=== PATIENT | female | born 1960 | race Caucasian/White ===

== ENCOUNTER 2018-06-30 07:57 | Day surgery (SDC) | payer OTHER, SELFPAY ==
--- NOTE | 2018-06-30 | PATH_ITS ---
[facility] Accession Number: [id number] . 01 Material submitted: . PART A: ANTRUM BIOPSY PART B: LESION PROXIMAL STOMACH PART C: BIOPSY GE JUNCTION . 02 Diagnosis: A. Antrum, Biopsy: Gastric antral and body mucosa with mild chronic gastritis. Negative for Helicobacter organisms by immunohistochemistry. Negative for intestinal metaplasia, dysplasia or malignancy. . B. Proximal Stomach Lesion, Biopsy: Features of hyperplastic gastric polyp. No evidence of Helicobacter organisms on H/E stain. Negative for intestinal metaplasia, dysplasia or malignancy. . C. Gastroesophageal Junction, Biopsy: Squamcolumnar junctional mucosa with no diagnostic abnormality. Negative for specialized intestinal metaplasia, dysplasia or malignancy. [facility]/07/02/2018 . 02 Electronically signed: . Ronak Leung MD, PhD, Pathologist NPI- [id number] . 01 Gross description: . Received three formalin-filled containers each labeled with the patient's name. . A. In a container labeled antrum are multiple 0.1 to 0.3 cm portions of tissue. Entirely submitted in cassette A. B. In a container labeled proximal stomach, the specimen consists of three 0.1 to 0.2 cm portions of tissue. Entirely submitted in cassette B. C. In a container labeled GE junction, the specimen consists of four less than 0.1 to 0.3 cm portions of tissue. Entirely submitted in cassette C. ([facility] [place]:[id number]) /[facility] . 02 Microscopic: . Part A: An immunohistochemical stain is performed to evaluate for Helicobacter organisms and is negative. A control stain shows appropriate reactivity. . * This test was developed and its performance characteristics determined by [facility]. It has not been cleared or approved by the U.S. Food and Drug Administration. The FDA has determined that such clearance or approval is not necessary. This test is used for clinical purposes. It should not be regarded as investigational or for research. . 02 Pathologist provided ICD-10: K29.70, K31.7, K21.9 . 02 CPT . 649405, 387107, 506511, K97370 Performed at: 01 [facility] [address] [id number] MD Parminder Castellon MD Phone: [phone] Performed at: 02 [facility] [id number] [place] [id number] MD Sina Rogel MD Phone: [phone]
[2018-06-30 08:22] VITALS: BP 127/68; PULSE 94; RESP 16; TEMP 36.9; O2SAT 100; BMI 21.4
[2018-06-30] MEDS: SODIUM CHLORIDE 0.9% 1,000 ML 200 ML IV (08:32)
--- NOTE | 2018-06-30 08:43 | SUR.PREOP ---
ramesh garcia started iv
[2018-06-30] MEDS: LORazepam 2 MG/ML SYRINGE 0.5 MG IV (08:49)
--- NOTE | 2018-06-30 08:50 | SUR.PREOP ---
lorazepam given per order for pt's anxiety.
[2018-06-30] MEDS: MIDAZOLAM 5 MG/5 ML VIAL IV (08:52)
--- NOTE | 2018-06-30 08:56 | PM.PREOP ---
Pre-operative Note Interval Note Pre-op Check: Yes History & Physical Reviewed by Physician and Yes Exam Performed Changes: No ASA Class (for procedural sedation): I
[2018-06-30] MEDS: LIDOCAINE 4% SOLN 50 ML 20 ML TOP (08:58)
[2018-06-30] MEDS: fentaNYL 250 MCG/5 ML INJ IV (08:58)
[2018-06-30] MEDS: TETRACAINE/BENZOCAINE/BUTAMBEN (CETACAINE) BOTTLE 1 SPRAY TOP (09:00)
--- NOTE | 2018-06-30 09:13 | PM.OP.ENDO ---
Operative Date/Time/Diagnoses Date of procedure: 06/30/18 Time of procedure: 09:13 Pre-op diagnosis: Chronic throat irritation rule out silent reflux. Post-op diagnosis: other (Gastritis. Possible delayed gastric emptying.) Procedure & Clinicians Study performed: EGD with cold biopsy Same procedure as scheduled: Yes Indications: Chronic throat irritation and clearing. Concern raised regarding the possibility of silent reflux. Surgeon: Emiliano Gallardo Procedure Notes SCOAP/Timeout: Performed Procedure in detail: The patient had topical anesthetic applied to oropharynx. She was placed in left lateral decubitus position and underwent IV sedation directed by the surgeon consisting of fentanyl and Versed. A bite block was inserted and the scope was advanced through it into the esophagus. The esophagus was unremarkable. GE junction was noted at[38 cm. There was a very small hiatal hernia. There was a sharp demarcation between the esophagus and gastric mucosa. There were no ulcers strictures or lesions seen in the region. There was a small amount of food in the stomach.]. The stomach insufflated well. The stomach was mildly inflamed diffusely. There were no other lesions seen in the body, antrum or at the incisura. The pyloric channel was [narrowed but patent]. The duodenum was unremarkable to the 4th part. The scope was brought back into the stomach and retroflexed. The proximal stomach[was mildly inflamed. They are worse several small slightly raised red lesions which I biopsied. There was a very small hiatal hernia seen on retroflexed view.]. The scope was straightened and biopsies were taken randomly of the antrum. The scope was brought out through the esophagus again and random biopsies was were taken at the GE junction. No lesions were seen. The scope was removed and the patient tolerated the procedure well. Scope withdrawal time: Not applicable Sedation minutes: 18 Findings: gastritis and other findings (Small red lesions near the GE junction in the proximal stomach which were biopsied) Specimen(s): other (Gastric/red lesions/GE junction) Complications: none Recommendations: Continue medication(s) (Omeprazole) Follow up: weeks (Two) Disposition: PACU
[2018-06-30 09:16] VITALS: BP 114/66; PULSE 86; RESP 10; TEMP 36.8; O2SAT 100
[2018-06-30 09:21] VITALS: BP 127/79; PULSE 106; RESP 14; O2SAT 99
[2018-06-30 09:29] VITALS: BP 93/63; PULSE 99; RESP 17
[2018-06-30 09:33] VITALS: BP 105/66; PULSE 92; RESP 13; TEMP 36.8; O2SAT 97
== END 2018-06-30 09:45 | disposition home or self-care (01) ==
PROVIDERS: PCP Family Medicine; Visit Provider Specialist
PROC: 0DJ08ZZ Inspection of Upper Intestinal Tract, Via Natural or Artificial Opening Endoscopic (ICD-10-PCS; CPT 43235; principal; 2018-06-30 09:00)
DX: K21.9 Gastro-esophageal reflux disease without esophagitis (principal); K29.70 Gastritis, unspecified, without bleeding; K31.7 Polyp of stomach and duodenum
CPT/HCPCS: 43239; 99152; J2060; J2250; J3010

== ENCOUNTER → 2018-08-04 15:00 | Outpatient (CLI) | payer OTHER, SELFPAY | PROVIDERS: PCP Family Medicine | DX: Z23 Encounter for immunization (principal) | CPT/HCPCS: 90471; 90686 ==

== ENCOUNTER → 2018-09-04 07:44 | Outpatient (CLI) | payer OTHER, SELFPAY ==
--- NOTE | 2018-09-04 | DI.MG.S_ITS ---
BILATERAL DIGITAL SCREENING MAMMOGRAM 3D/2D WITH CAD: 09/04/2018 CLINICAL: Routine screening. Family history of breast cancer. Comparison is made to exams dated: 08/11/2017 mammogram, 07/29/2016 mammogram, and 07/12/2015 mammogram - [facility]. The tissue of both breasts is heterogeneously dense. This may lower the sensitivity of mammography. Current study was also evaluated with a Computer Aided Detection (CAD) system. There is a 2 cm oval mass with an obscured margin in the left breast upper outer aspect anterior depth. Finding is best noted on tomographic CC slice 11 and MLO slice 14. No other significant masses, calcifications, or other findings are seen in either breast. IMPRESSION: INCOMPLETE: NEEDS ADDITIONAL IMAGING EVALUATION The 2 cm oval mass in the left breast is indeterminate. Additional views with possible ultrasound are recommended. This exam was interpreted at Station ID: [id number]. NOTE: For mammograms, a report in lay terms will be sent to the patient. Approximately 15% of breast malignancies will not be visualized mammographically. In the management of a palpable breast mass, a negative mammogram must not discourage biopsy of a clinically suspicious lesion. Electronically Signed By: Ganga Holland M.D. ecl/:09/06/2018 02:42:26 letter sent: Additional Imaging Needed ACR BI-RADS Category 0: Incomplete 3340F
== END ==
PROVIDERS: PCP Family Medicine; Visit Provider Family Medicine
DX: Z12.31 Encounter for screening mammogram for malignant neoplasm of breast (principal); Z80.3 Family history of malignant neoplasm of breast
CPT/HCPCS: 77063; 77067

== ENCOUNTER → 2018-09-17 08:48 | Outpatient (CLI) | payer OTHER, SELFPAY ==
--- NOTE | 2018-09-17 | DI.US.S_ITS ---
LIMITED ULTRASOUND OF LEFT BREAST: 09/17/2018 CLINICAL: Patient returns today to evaluate a potential mass in the left breast. Comparison is made to exams dated: 09/04/2018 mammogram, 08/11/2017 mammogram, and 07/29/2016 mammogram - [facility]. Real-time and Doppler ultrasound of the left breast upper outer quadrant were performed. Humphrey scale images of the real-time examination were reviewed. There is a benign 1.8 cm x 1.6 cm x 0.8 cm oval cyst in the left breast at 3 o'clock retroareolar position. This oval cyst is anechoic with posterior acoustic enhancement. This correlates with mammography findings. Color flow imaging demonstrates that there is no vascularity present. IMPRESSION: BENIGN The 1.8 cm x 1.6 cm x 0.8 cm oval cyst in the left breast is consistent with a simple cyst and is benign. There is no sonographic evidence of malignancy in the imaged left breast. Return to annual mammogram screening schedule is recommended, next due in August 2019. This exam was interpreted at Station ID: [id number]. Electronically Signed By: Ganga Holland M.D. ecl/:09/17/2018 11:15:51 letter sent: Normal Exam Ultrasound BI-RADS: 2 Benign
--- NOTE | 2018-09-17 | DI.MG.S_ITS ---
UNILATERAL LEFT DIGITAL DIAGNOSTIC MAMMOGRAM 3D/2D WITH ADDITIONAL VIEWS: 09/17/2018 CLINICAL: Additional evaluation requested from prior study. Comparison is made to exams dated: 09/04/2018 mammogram, 08/11/2017 mammogram, and 07/29/2016 mammogram - [facility]. The tissue of left breast is heterogeneously dense. This may lower the sensitivity of mammography. Previously identified approximately 2.0 cm oval mass with an obscured margin in the left breast upper outer aspect anterior depth of comparison screening mammograms persists with additional views. No other significant masses, calcifications, or other findings are seen in the breast. IMPRESSION: INCOMPLETE: NEEDS ADDITIONAL IMAGING EVALUATION Previously identified approximately 2.0 cm oval mass with an obscured margin in the left breast upper outer aspect anterior depth of comparison screening mammograms persists with additional views. A targeted ultrasound is recommended for further evaluation, and will be performed immediately following this exam. This exam was interpreted at Station ID: [id number]. NOTE: For mammograms, a report in lay terms will be sent to the patient. Approximately 15% of breast malignancies will not be visualized mammographically. In the management of a palpable breast mass, a negative mammogram must not discourage biopsy of a clinically suspicious lesion. Electronically Signed By: Ganga Holland M.D. ecl/:09/17/2018 11:11:24 letter sent: Additional Imaging Needed ACR BI-RADS Category 0: Incomplete 3340F
== END ==
PROVIDERS: PCP Family Medicine; Visit Provider Family Medicine
DX: R92.8 Other abnormal and inconclusive findings on diagnostic imaging of breast (principal); N60.02 Solitary cyst of left breast
CPT/HCPCS: 76642; 77065; G0279

== ENCOUNTER → 2019-06-30 16:39 | Outpatient (CLI) | payer OTHER, SELFPAY ==
--- NOTE | 2019-06-30 16:41 | DI.MRI.S_ITS ---
PROCEDURE: MR LUMBAR SPINE WO CON INDICATIONS: Right sided lower back pain TECHNIQUE: Noncontrast sagittal T1 spin echo and T2 fast echo, sagittal STIR, axial T1 and T2 fast spin echo through the lumbar spine. Axial and oblique coronal T1 spin echo and STIR through the sacrum. In cases with scoliosis, additional coronal T2 fast spin echo may be performed. COMPARISON: None. FINDINGS: Image quality: Excellent. Alignment and Curvature: There is normal bony alignment. Bone Marrow: Marrow is of normal overall signal. No acute vertebral body compression fractures. No sacral fractures. Spinal Cord: Conus medullaris terminates at the T12-L1 level. Visualized cord demonstrates normal signal and size. Paraspinous Soft Tissues: No paravertebral masses. A 1.4 cm this can be seen on the lateral aspect of the right kidney. T12-L1: Normal appearance. L1-L2: Normal appearance. L2-L3: Normal appearance. L3-L4: Normal appearance. L4-L5: Normal appearance. L5-S1: The disc height is well-preserved. Loss of disc signal is seen at this level. There is a focal annular fissure seen posteriorly, as on series 2 image 9. Mild facet joint hypertrophy is seen. The No neural foraminal narrowing is seen. Mild central canal narrowing is seen. Sacrum: Sacral neural foramina appear normal throughout. Superior to the piriformis muscles, the pre-plexal structures appear normal, including the lumbosacral trunk and S1 root. Just anterior to the piriformis muscles, the sacral plexus proper demonstrates normal morphology (lumbosacral trunk, S1 to S3 nerve roots). Inferior to the piriformis muscles, the sciatic nerves appear normal. IMPRESSION: Focal L5-S1 degenerative change is seen, including an annular fissure posteriorly. Dictated by: Luis Enrique Daugherty M.D. on 06/30/2019 at 17:17 Approved by: Luis Enrique Daugherty M.D. on 06/30/2019 at 17:19
== END ==
PROVIDERS: PCP Family Medicine; Visit Provider Family Medicine
DX: M54.16 Radiculopathy, lumbar region (principal)
CPT/HCPCS: 72148

== ENCOUNTER → 2019-09-09 14:37 | Outpatient (CLI) | payer OTHER, SELFPAY | PROVIDERS: PCP Family Medicine | DX: Z23 Encounter for immunization (principal) | CPT/HCPCS: 90471; 90686 ==

== ENCOUNTER → 2019-10-11 08:04 | Outpatient (CLI) | payer OTHER, SELFPAY ==
--- NOTE | 2019-10-11 | DI.MG.S_ITS ---
BILATERAL DIGITAL SCREENING MAMMOGRAM 3D/2D WITH CAD: 10/11/2019 CLINICAL: Routine screening. Family history of breast cancer. Comparison is made to exams dated: 09/04/2018 mammogram, 08/11/2017 mammogram, 07/29/2016 mammogram, 07/12/2015 mammogram, and 06/20/2014 mammogram - [facility]. The tissue of both breasts is heterogeneously dense. This may lower the sensitivity of mammography. Current study was also evaluated with a Computer Aided Detection (CAD) system. No significant masses, calcifications, or other findings are seen in either breast. There has been no significant interval change. IMPRESSION: NEGATIVE There is no mammographic evidence of malignancy. A 1 year screening mammogram is recommended. This exam was interpreted at Station ID: [id number]. NOTE: For mammograms, a report in lay terms will be sent to the patient. Approximately 15% of breast malignancies will not be visualized mammographically. In the management of a palpable breast mass, a negative mammogram must not discourage biopsy of a clinically suspicious lesion. Electronically Signed By: Antonio chester/ester:10/11/2019 15:28:47 letter sent: Normal Exam ACR BI-RADS Category 1: Negative 3341F
== END ==
PROVIDERS: PCP Family Medicine; Visit Provider Family Medicine
DX: Z12.31 Encounter for screening mammogram for malignant neoplasm of breast (principal); Z80.3 Family history of malignant neoplasm of breast
CPT/HCPCS: 77063; 77067

== ENCOUNTER → 2019-10-28 15:51 | Outpatient (CLI) | payer OTHER, SELFPAY ==
--- NOTE | 2019-10-28 | DI.RAD.S_ITS ---
PROCEDURE: XR CHEST 2V INDICATIONS: cough TECHNIQUE: 2 views of the chest were acquired. COMPARISON: None. FINDINGS: Surgical changes and devices: None. Lungs and pleura: Lungs are clear. No pleural effusions or pneumothorax. Mediastinum: Mediastinal contours are normal. Heart size is normal. Bones and chest wall: Left mastectomy. No suspicious bony abnormalities. Soft tissues appear unremarkable. IMPRESSION: No acute cardiopulmonary disease. Dictated by: Garret Carmen M.D. on 10/28/2019 at 16:29 Approved by: Garret Carmen M.D. on 10/28/2019 at 16:30
== END ==
PROVIDERS: PCP Family Medicine; Visit Provider Family Medicine
DX: R05 Cough (principal)
CPT/HCPCS: 71046

== ENCOUNTER → 2020-09-07 04:08 | Outpatient (CLI) | payer OTHER, SELFPAY | PROVIDERS: PCP Family Medicine; Referring Provider Internal Medicine; Visit Provider Internal Medicine | DX: Z23 Encounter for immunization (principal) | CPT/HCPCS: 90471; 90686 ==

== ENCOUNTER → 2020-09-21 14:19 | Outpatient (CLI) | payer OTHER, SELFPAY ==
[2020-09-21 14:44] LABS: COVID19 -Nasal RAPID Negative (Negative)
== END ==
PROVIDERS: PCP Family Medicine; Visit Provider Nurse Practitioner
DX: Z11.59 Encounter for screening for other viral diseases (principal)
CPT/HCPCS: 87635

== ENCOUNTER → 2020-10-30 08:34 | Outpatient (CLI) | payer OTHER, SELFPAY ==
--- NOTE | 2020-10-30 | DI.MG.S_ITS ---
BILATERAL DIGITAL SCREENING MAMMOGRAM 3D/2D WITH CAD: 10/30/2020 CLINICAL: Routine screening. Family history of breast cancer. Comparison is made to exams dated: 10/11/2019 mammogram, 09/04/2018 mammogram, 07/12/2015 mammogram, and 07/29/2016 mammogram - [facility]. The tissue of both breasts is heterogeneously dense. This may lower the sensitivity of mammography. Current study was also evaluated with a Computer Aided Detection (CAD) system. The left breast has post-operative findings. There are new grouped fine calcifications in the left breast at 5 o'clock middle depth. No other significant masses, calcifications, or other findings are seen in either breast. IMPRESSION: INCOMPLETE: NEEDS ADDITIONAL IMAGING EVALUATION The new grouped fine calcifications in the left breast are indeterminate. Mediolateral and spot magnification views are recommended. This exam was interpreted at Station ID: [id number]. NOTE: For mammograms, a report in lay terms will be sent to the patient. Approximately 15% of breast malignancies will not be visualized mammographically. In the management of a palpable breast mass, a negative mammogram must not discourage biopsy of a clinically suspicious lesion. Electronically Signed By: Landen Diaz M.D. aty/:10/30/2020 09:01:27 letter sent: Additional Imaging Needed ACR BI-RADS Category 0: Incomplete 3340F
== END ==
PROVIDERS: PCP Family Medicine; Referring Provider Family Medicine; Visit Provider Family Medicine
DX: Z12.31 Encounter for screening mammogram for malignant neoplasm of breast (principal); Z80.3 Family history of malignant neoplasm of breast
CPT/HCPCS: 77063; 77067

== ENCOUNTER → 2020-12-01 08:54 | Outpatient (CLI) | payer OTHER, SELFPAY ==
--- NOTE | 2020-12-01 | DI.MG.S_ITS ---
UNILATERAL LEFT DIGITAL DIAGNOSTIC MAMMOGRAM 3D/2D WITH ADDITIONAL VIEWS: 12/01/2020 CLINICAL: Additional evaluation requested from prior study. Comparison is made to exams dated: 10/30/2020 mammogram, 10/11/2019 mammogram, and 09/04/2018 mammogram - [facility]. The tissue of left breast is heterogeneously dense. This may lower the sensitivity of mammography. There is an oval equal density focal asymmetry with an obscured and circumscribed margin in the left breast at 5 o'clock middle depth. There also are benign grouped fine calcifications in the left breast at 5 o'clock posterior depth. These are less prominent. No other significant masses or calcifications are seen in the breast. IMPRESSION: INCOMPLETE: NEEDS ADDITIONAL IMAGING EVALUATION The oval equal density focal asymmetry in the left breast at 5 o'clock middle depth is indeterminate. An ultrasound is recommended. Ultrasound will be performed the same day. This exam was interpreted at Station ID: [id number]. NOTE: For mammograms, a report in lay terms will be sent to the patient. Approximately 15% of breast malignancies will not be visualized mammographically. In the management of a palpable breast mass, a negative mammogram must not discourage biopsy of a clinically suspicious lesion. Electronically Signed By: Parminder Ryder M.D. ddp/:12/01/2020 10:28:48 ACR BI-RADS Category 0: Incomplete 3340F
--- NOTE | 2020-12-01 | DI.US.S_ITS ---
LIMITED ULTRASOUND OF LEFT BREAST: 12/01/2020 CLINICAL: Patient returns today to evaluate a focal asymmetry in the left breast. Comparison is made to exams dated: 12/01/2020 mammogram, 10/30/2020 mammogram, 10/11/2019 mammogram, 09/17/2018 ultrasound, 09/17/2018 mammogram, and 09/04/2018 mammogram - [facility]. Color flow and real-time ultrasound of the left breast 2-5 o'clock region were performed on the areas of interest. There is a 0.7 cm x 0.5 cm x 0.4 cm oval cyst in the left breast at 3 o'clock middle depth 2 cm from the nipple. This oval cyst is hypoechoic with a well-defined boundary and internal echoes. This correlates with mammography findings. Color flow imaging demonstrates that there is no vascularity present. There also is a 0.7 cm x 0.4 cm x 0.4 cm oval cyst in the left breast at 3 o'clock middle depth 3 cm from the nipple. This oval cyst is hypoechoic with a well-defined boundary, internal echoes, and posterior acoustic enhancement. This correlates with mammography findings. Color flow imaging demonstrates that there is no vascularity present. IMPRESSION: PROBABLY BENIGN The 0.7 cm x 0.5 cm x 0.4 cm oval cyst in the left breast at 3 o'clock middle depth is consistent with a complicated cyst and is probably benign. The 0.7 cm x 0.4 cm x 0.4 cm oval cyst in the left breast at 3 o'clock middle depth is consistent with a complicated cyst and is probably benign. A follow-up mammogram and an ultrasound in 6 months are recommended to demonstrate stability. This exam was interpreted at Station ID: [id number]. Electronically Signed By: Parminder Ryder M.D. ddjesus/:12/01/2020 12:34:10 letter sent: Followup Recommended Ultrasound BI-RADS: 3 Probably benign
== END ==
PROVIDERS: PCP Family Medicine; Referring Provider Family Medicine; Visit Provider Family Medicine
DX: R92.8 Other abnormal and inconclusive findings on diagnostic imaging of breast (principal); N60.02 Solitary cyst of left breast
CPT/HCPCS: 76642; 77065; G0279

== ENCOUNTER → 2022-03-01 09:31 | Outpatient (CLI) | payer OTHER, SELFPAY ==
--- NOTE | 2022-03-01 09:33 | DI.MG.S_ITS ---
BILATERAL DIGITAL DIAGNOSTIC MAMMOGRAM 3D/2D: 03/01/2022 CLINICAL: Short term follow up for the left breast. Comparison is made to exams dated: 12/01/2020 ultrasound, 12/01/2020 mammogram, 10/30/2020 mammogram, and 10/11/2019 mammogram - [facility]. The tissue of both breasts is heterogeneously dense. This may lower the sensitivity of mammography. There is a new oval equal density mass with an obscured and circumscribed margin in the left breast at 3 o'clock middle depth. There also is an oval equal density focal asymmetry with an indistinct margin in the left breast at 6 o'clock posterior depth. No other significant masses, calcifications, or other findings are seen in either breast. IMPRESSION: INCOMPLETE: NEEDS ADDITIONAL IMAGING EVALUATION The new oval equal density mass in the left breast at 3 o'clock middle depth is indeterminate. An ultrasound is recommended. The oval equal density focal asymmetry in the left breast at 6 o'clock posterior depth is indeterminate. An ultrasound is recommended. Ultrasound will be performed immediately following the current exam. This exam was interpreted at Station ID: [id number]. NOTE: For mammograms, a report in lay terms will be sent to the patient. Approximately 15% of breast malignancies will not be visualized mammographically. In the management of a palpable breast mass, a negative mammogram must not discourage biopsy of a clinically suspicious lesion. Electronically Signed By: Parminder Ryder M.D. ddjesus/:03/01/2022 10:12:10 ACR BI-RADS Category 0: Incomplete 3340F
--- NOTE | 2022-03-01 09:33 | DI.US.S_ITS ---
LIMITED ULTRASOUND OF LEFT BREAST: 03/01/2022 CLINICAL: 12 month follow-up of cysts. Comparison is made to exams dated: 03/01/2022 mammogram, 12/01/2020 ultrasound, 12/01/2020 mammogram, and 10/30/2020 mammogram - [facility]. Color flow and real-time ultrasound of the left breast 3-6 o'clock region were performed on the areas of interest. There is a benign 0.9 cm x 0.5 cm x 0.9 cm oval cyst in the left breast at 3 o'clock middle depth. This oval cyst is anechoic with a well-defined boundary and posterior acoustic enhancement. This abnormality is increased in size but now appears simple and anechoic. This correlates with mammography findings. Color flow imaging demonstrates that there is no vascularity present. The previously visualized second cyst at 3 o'clock is not seen on the current study. No other discrete mass identified to correlate with the mammographic finding in the inferior left breast which appears similar to the prior studies. IMPRESSION: BENIGN There is no sonographic evidence of malignancy. The 0.9 cm x 0.5 cm x 0.9 cm oval cyst in the left breast is consistent with a simple cyst and is benign. A 1 year screening mammogram is recommended. This exam was interpreted at Station ID: [id number]. Electronically Signed By: Parminder bahena/:03/01/2022 10:43:55 letter sent: Normal Exam Ultrasound BI-RADS: 2 Benign
== END ==
PROVIDERS: PCP Family Medicine; Referring Provider Family Medicine; Visit Provider Family Medicine
DX: R92.8 Other abnormal and inconclusive findings on diagnostic imaging of breast (principal); N60.02 Solitary cyst of left breast
CPT/HCPCS: 76642; 77066; G0279

== ENCOUNTER → 2022-11-14 15:56 | Outpatient (ROUT) | payer OTHER, SELFPAY ==
[2022-11-14 16:40] LABS: Influenza A - CEPHEID Flu A NEGATIVE (NEGATIVE); Influenza B - CEPHEID Flu B NEGATIVE (NEGATIVE); Respiratory Syncytial Virus Negative (Negative)
[2022-11-14 17:04] LABS: COVID-19 CEPHEID 4-PLEX PCR POSITIVE (Negative)
== END ==
PROVIDERS: PCP Family Medicine; Visit Provider Family Medicine
DX: J06.9 Acute upper respiratory infection, unspecified (principal)
CPT/HCPCS: 0241U

== ENCOUNTER → 2023-02-24 11:19 | Outpatient (CLI) | payer OTHER, SELFPAY ==
--- NOTE | 2023-02-24 | DI.US.S_ITS ---
LIMITED ULTRASOUND OF RIGHT BREAST AND AXILLA: 02/24/2023 CLINICAL: Palpable right breast lump. Comparison is made to exams dated: 02/24/2023 mammogram, 03/01/2022 ultrasound, 03/01/2022 mammogram, 12/01/2020 ultrasound, 12/01/2020 mammogram, and 10/30/2020 mammogram - [facility]. Color flow and real-time ultrasound of the right breast 9 o'clock, and axilla regions were performed. Humphrey scale images of the real-time examination were reviewed. There is a 1.5 cm x 0.8 cm x 0.6 cm mass with an indistinct margin in the right breast at 9 o'clock posterior depth 5 cm from the nipple. This mass is hypoechoic. This correlates as palpated. Color flow imaging demonstrates that there is an adjacent vascularity. No significant abnormalities were seen sonographically in the right axilla. IMPRESSION: SUSPICIOUS OF MALIGNANCY The 1.5 cm x 0.8 cm x 0.6 cm mass in the right breast is at a moderate suspicion for malignancy. An ultrasound guided biopsy is recommended. No enlarged right axillary lymph nodes. Exam findings were discussed with the patient by Dr. Gao. This exam was interpreted at Station ID: [id number]. Electronically Signed By: Antonio Hughes M.D. slc/:02/24/2023 13:23:10 letter sent: Biopsy Required Ultrasound BI-RADS: 4b Moderate suspicion of malignancy
--- NOTE | 2023-02-24 | DI.MG.S_ITS ---
BILATERAL DIGITAL DIAGNOSTIC MAMMOGRAM 3D/2D: 02/24/2023 CLINICAL: Lump in the right breast. Comparison is made to exams dated: 03/01/2022 mammogram, 12/01/2020 mammogram, 10/30/2020 mammogram, and 10/11/2019 mammogram - [facility]. Both breasts are heterogeneously dense, which may obscure small masses (category c / 51-75% glandular tissue). There is a focal asymmetry in the right breast at 9 o'clock posterior depth. This correlates as palpated. No other significant masses, calcifications, or other findings are seen in either breast. IMPRESSION: INCOMPLETE: NEEDS ADDITIONAL IMAGING EVALUATION The focal asymmetry in the right breast is indeterminate. A targeted ultrasound is recommended and will immediately follow. Based on Tyrer-Cuzick model (a risk assessment model), the patient's lifetime risk is 39.8% and her 10 year risk is 19.5%. If a patient has an elevated risk, a more comprehensive evaluation should be considered and/or a referral to a genetic counselor. The [employer], [employer], and NCCN Guidelines advise the consideration of Breast MRI as an adjunct to screening mammography in patients whose Lifetime risk to develop breast cancer is 20% or higher. This exam was interpreted at Station ID: [id number]. NOTE: For mammograms, a report in lay terms will be sent to the patient. Approximately 15% of breast malignancies will not be visualized mammographically. In the management of a palpable breast mass, a negative mammogram must not discourage biopsy of a clinically suspicious lesion. Electronically Signed By: Antonio Hughes M.D. slc/:02/24/2023 13:27:47 ACR BI-RADS Category 0: Incomplete 3340F
--- NOTE | 2023-02-24 11:38 | DI.DEXA.S_ITS ---
Bone Density Report Name: ELAN RODRIGUEZ Age: 62 Sex: Female Ethnicity: White Date of : 1960 Indication: osteopenia; Referring Provider: HERBERT DAVIS Study: Bone densitometry was performed. Exam Date: February 24, 2023 Accession number: [id number] Bone Density: Region BMD T-score Z-score Classification AP Spine(L1-L4) 1.084 0.3 2.0 Normal Femoral Neck (Left) 0.747 -0.9 0.5 Normal Total Hip (Left) 0.884 -0.5 0.6 Normal Femoral Neck (Right) 0.722 -1.1 0.3 Osteopenia Total Hip (Right) 0.864 -0.6 0.5 Normal Total Hip Mean 0.874 -0.6 0.6 Normal World Health Organization criteria for BMD impression classify patients as: Normal (T-score at or above -1.0), Osteopenia (T-score between -1.0 and -2.5), or Osteoporosis (T-score at or below -2.5). 10-year Fracture Risk(1): Major Osteoporotic Fracture 7.0% Hip Fracture 0.5% Reported Risk Factors: [place] (), Neck BMD=0.722, BMI=20.7 (1) FRAX(R) Version 3.08. Fracture probability calculated for an untreated patient. Fracture probability may be lower if the patient has received treatment. Previous Exams: -- Region Exam Age BMD T-score BMD Change BMD Change Date g/cm2 vs Baseline vs Previous -- AP Spine (L1-L4) 02/24/2023 62 1.084 0.3 -0.041 (-3.6%)# -0.041 (-3.6%)# 04/24/2012 52 1.125 0.7 Total Hip(Left) 02/24/2023 62 0.884 -0.5 0.050 (6.0%)# 0.050 (6.0%)# 04/24/2012 52 0.834 -0.9 Total Hip(Right) 02/24/2023 62 0.864 -0.6 0.074 (9.4%)# 0.074 (9.4%)# 04/24/2012 52 0.790 -1.2 -- *Denotes significance at 95% confidence level, LSC for AP Spine = 0.022 g/cm2, LSC for Total Hip = 0.027 g/cm2 # Denotes dissimilar scan types or analysis methods Impression: The patient has low bone mass, based on the Right Femoral Neck T-score. The patient has an estimated ten-year risk of hip fracture of 0.5% and an estimated ten-year risk of major fracture of 7%, based on the WHO FRAX algorithm. No significant bone loss was observed. Discussion: BONE DENSITY IS LOW AT ONE OR MORE SKELETAL SITES. This patient's lowest T-score is low at one or more skeletal sites. It meets the World Health Organization's (WHO) criteria for ?low bone mass? (T-score between -1.0 and -2.5). The patient's 10-year risk of fracture as calculated by FRAX is less than the threshold where pharmacological therapy is recommended by the National Osteoporosis Foundation (NOF). However, all treatment decisions require clinical judgment and consideration of individual patient factors, including patient preferences, comorbidities, previous drug use, risk factors not captured in the FRAX model (e.g., frailty, falls, vitamin D deficiency, increased bone turnover, interval significant decline in bone density) and possible under or overestimation of fracture risk by FRAX. The patient should follow a healthful lifestyle (good nutrition with adequate calcium and vitamin D, and appropriate weight-bearing exercise). Follow-Up: Consider repeating this study in 2 to 3 years to reassess this patient's status, or sooner if there is some new clinical indication. Reported by: HYUN ROCK M.D on 02/24/2023 11:46:00 AM.
== END ==
PROVIDERS: PCP Family Medicine; Referring Provider Family Medicine; Visit Provider Family Medicine
DX: N63.15 Unspecified lump in the right breast, overlapping quadrants (principal); M85.851 Other specified disorders of bone density and structure, right thigh; R92.8 Other abnormal and inconclusive findings on diagnostic imaging of breast; Z78.0 Asymptomatic menopausal state
CPT/HCPCS: 76642; 77066; 77080; G0279

== ENCOUNTER → 2023-03-11 14:14 | Outpatient (CLI) | payer OTHER, SELFPAY ==
--- NOTE | 2023-03-11 | PATH_ITS ---
[facility] Accession Number: [id number] No. of containers..01 Tissue . 01 Material submitted: . breast - RIGHT BREAST MASS 9:00 5CMFN . 01 Diagnosis: A. Right Breast Mass, 9 o'clock, 5 cm From The Nipple, Biopsy: Invasive (ductal) carcinoma, grade 2 of 3 ([place] combined histologic grade, total score 6/9), with the following features: 1. Tubular differentiation: Little. (3/3) 2. Nuclear grade: Intermediate. (2/3) 3. Mitotic rate: Low. (1/3) 4. Size of invasive carcinoma: Present on 2 cores, single largest dimension of 5.5 mm in this sample. 5. Ductal carcinoma in situ: Not definitively identified. 6. Microcalcifications: In benign fibrotic breast stroma. 7. Lymphovascular space invasion: Not identified. 8. Prognostic markers: - Estrogen receptor: Positive (>99%, Strong). - Progesterone receptor: Positive (65%, Moderate to Strong). - HER-2: Negative for protein overexpression by immunohistochemistry (1+). [facility] 03/17/2023 1143 Local . 01 Electronically signed: . Lisa Arenas MD, Pathologist NPI- [id number] . 01 Gross description: . The specimen is received in formalin labeled with the patient's name, , and US Breast Ndl core biopsy Rt., and consists of multiple castillo to yellow soft tissue fragments aggregating to 0.9 x 0.8 x 0.2 cm. The specimen is submitted entirely in cassette A1. . The specimen was removed on 03/11/2023 at 1538 hours, time in formalin not provided, cold ischemic time cannot be calculated, total fixation time is approximately 28 hours. ([id number]) /KRIS 03/12/2023 1043 Local . 01 Microscopic: . P63 and smooth muscle myosin immunostains are performed on block A1 in order to evaluate the atypical glandular proliferation with appropriately staining external controls. There is complete loss of both myoepithelial markers within the area of atypical glands, in support of invasive carcinoma. . In addition, focal lobular growth pattern is seen, and is evaluated with E-cadherin and Beta-catenin immunostains; the invasive carcinoma shows retention of both markers in support of ductal phenotype. . CAP BREAST BIOMARKER REPORTING TEMPLATE: Predictive marker immunohistochemical studies are performed on block A1 with the invasive carcinoma showing the following results: . Estrogen receptor (SP1): Positive (more than 99% tumor cells staining, Staining intensity: Strong). Progesterone receptor (1E2): Positive (65% tumor cells staining, staining intensity: Moderate to Strong). Her2 (4B5) status by immunohistochemistry: Negative for protein overexpression by immunohistochemistry (1+) . Internal controls for ER and FL are positive. . Cold ischemic time is <5 minutes. The scoring criteria for breast biomarkers by immunohistochemistry is based on the ASCO/CAP guidelines (Marcella AC et al, J Clin Oncol: 2017 10;36(20):0207-6449 and Barahona ME et al, Arch Pathol Lab Med: 2009;134(6):907-22). Deparaffinized sections of formalin fixed tissue (along with appropriate positive controls) are incubated with the above antibody(s). Using the automated [place] stainer, tissue is incubated with the designated antibody which is then localized by a non-biotin, dual polymer detection system. The external controls are reviewed for appropriate reactivity and found to be adequate. Results on the target cell population are indicated above. These tests have not been validated on decalcified tissue. This test was developed and its performance characteristics determined by [facility]. It has not been cleared or approved by the U.S. Food and Drug Administration. The FDA has determined that such clearance or approval is not necessary. This test is used for clinical purposes. It should not be regarded as investigational or for research. . 01 Pathologist provided ICD-10: C50.911 . 01 CPT . 287761, I42786, U40577, 786520, 041451, 900618 Specimen Comment: A courtesy copy of this report has been sent to [phone] Performed at: 01 [facility] [address], [place], [place] [id number] MD Parminder Castellon MD Phone: [phone]
--- NOTE | 2023-03-11 | DI.US.S_ITS ---
ULTRASOUND GUIDED BIOPSY RIGHT BREAST WITH POST MAMMOGRAPHIC AND ULTRASOUND IMAGIN03/11/2023 CLINICAL: Right breast mass. PATIENT CONSENT: Risks (minor bleeding, infection, vasovagal reaction and repeat procedure), benefits and alternatives were explained to the patient and written informed consent was obtained. Correlation is made to exams dated: 03/11/2023 mammogram, 02/24/2023 ultrasound, 02/24/2023 mammogram, 03/01/2022 mammogram, and 10/30/2020 mammogram - [facility]. An ultrasound guided biopsy using real-time ultrasound was performed for the oval mass located in the right breast at 9 o'clock middle depth 5 CMFN measuring 0.8 x 0.5 x 0.5 cm. This was described on the previous ultrasound report. The skin was prepped in the usual manner. Local anesthetic was administered to the access site. The abnormality was approached from the lateral aspect. A biopsy needle was placed adjacent to the abnormality under ultrasound guidance. Once the needle was documented to be in the correct location, five specimens (16 gauge x 2 ; 20 gauge x 3) were obtained using an Achieve (16 g) or [place] (20 g) device. Post procedure ultrasound imaging demonstrates the clip at the targeted area. The specimens were sent to the laboratory for pathological analysis. IMPRESSION: ULTRASOUND GUIDED BIOPSY MALIGNANT Ultrasound guided biopsy of the mass in the right breast 9:00 middle depth was successful. Pathology demonstrate invasive ductal carcinoma. Pathology results are concordant with imaging findings. A surgical/oncologic consultation is recommended. This exam was interpreted at Station ID: [id number]. Garret Hughes M.D. fx,slc/:03/18/2023 11:21:37
--- NOTE | 2023-03-11 | DI.MG.S_ITS ---
UNILATERAL RIGHT DIGITAL DIAGNOSTIC MAMMOGRAM 3D/2D POST-NEEDLE BIOPSY: 03/11/2023 CLINICAL: Right breast lump-post clip. Comparison is made to exams dated: 02/24/2023 mammogram, 03/01/2022 mammogram, and 10/30/2020 mammogram - [facility]. The right breast is heterogeneously dense, which may obscure small masses (category c / 51-75% glandular tissue). The biopsy marker is not visualized, likely due to its far lateral locaton. IMPRESSION: POST PROCEDURE MAMMOGRAM FOR MARKER PLACEMENT The biopsy marker is not visualized, likely due to its far lateral locaton. Based on Tyrer-Cuzick model (a risk assessment model), the patient's lifetime risk is 39.8% and her 10 year risk is 19.5%. If a patient has an elevated risk, a more comprehensive evaluation should be considered and/or a referral to a genetic counselor. The [place] [employer], [employer], and NCCN Guidelines advise the consideration of Breast MRI as an adjunct to screening mammography in patients whose Lifetime risk to develop breast cancer is 20% or higher. This exam was interpreted at Station ID: [id number]. NOTE: For mammograms, a report in lay terms will be sent to the patient. Approximately 15% of breast malignancies will not be visualized mammographically. In the management of a palpable breast mass, a negative mammogram must not discourage biopsy of a clinically suspicious lesion. Electronically Signed By: Garret Carmen M.D. fx/:03/11/2023 16:45:55 ACR BI-RADS Category Post-procedure mammogram for marker placement
== END ==
PROVIDERS: PCP Family Medicine; Referring Provider Family Medicine; Visit Provider Family Medicine
DX: C50.811 Malignant neoplasm of overlapping sites of right female breast (principal); Z17.0 Estrogen receptor positive status [ER+]
CPT/HCPCS: 19083; 77065

== ENCOUNTER → 2025-08-03 14:02 | Outpatient (CLI) | payer OTHER, SELFPAY ==
--- NOTE | 2025-08-03 14:03 | DI.RAD.S_ITS ---
PROCEDURE: XR DEXA AXIAL SKELETON INDICATIONS: Screening COMPARISON: [facility], , XR DEXA AXIAL SKELETON, 02/24/2023, 11:38. FINDINGS: Lumbar Spine: Bone mineral density 1.069 g/cm2, T score 0.2, no significant change compared to prior. Left Femoral Neck: Bone mineral density 0.726 g/cm2, T score -1.1. Left Hip: Bone mineral density 0.875 g/cm2, T score -0.6, no significant change compared to prior. Fracture Risk Calculation (when applicable): 10-year fracture risk of a major osteoporotic fracture 7.8 percent and of a hip fracture 0.6 percent. (T score greater or equal to -1.0 to: NORMAL) (T score from -1.1 to -2.4: OSTEOPENIA) (T score less than or equal to -2.5: OSTEOPOROSIS) IMPRESSION: Low bone mineral density (osteopenia) by WHO classification. Follow-up guidelines as follows: Osteoporosis: Consider a repeat DEXA and Vertebral Fracture Assessment (VFA) exam in 2 years or sooner if medically necessary, to reassess this patient's status. Osteopenia: Consider a repeat DEXA in 2-3 years to reassess this patient's status, or if there is a new clinical indication. Normal: Consider a repeat DEXA in 5 years or sooner, or if there is a new clinical indication. All treatment decisions require clinical judgment and consideration of individual patient factors, including patient preferences, comorbidities, previous drug use, risk factors not captured in the FRAX model (e.g., frailty, falls, vitamin D deficiency, increased bone turnover, interval significant decline in bone density ) and possible under- or over-estimation of fracture risk by FRAX. In addition, the NOF Guide recommends that FDA-approved medical therapies be considered in postmenopausal women and men age >= 50 years with a: * Hip or vertebral (clinical or morphometric) fracture * T-score of <=-2.5 at the spine or hip * Ten-year fracture probability by FRAX of >= 3% for hip fracture or >=20% for major osteoporotic fracture. Dictated by: Zoran Guerrier M.D. on 08/03/2025 at 15:32 Approved by: Zoran Guerrier M.D. on 08/03/2025 at 15:33
== END ==
LOC: RAD 14:02
PROVIDERS: PCP Family Medicine; Referring Provider Naturopath; Visit Provider Naturopath
DX: N95.1 Menopausal and female climacteric states (principal); M85.88 Other specified disorders of bone density and structure, other site
CPT/HCPCS: 77080